=== PATIENT | male | born 2000 | race Asian ===

== ENCOUNTER 2025-02-11 06:21 | Outpatient (REF) | payer OTHER, SELFPAY ==
--- NOTE | ~2025-02-11 | US_ITS ---
EXAMINATION: US ABDOMEN COMPLETE CLINICAL INFORMATION: . COMPARISON: None available. TECHNIQUE: Real-time ultrasound of the abdomen using grayscale technique. FINDINGS: PANCREAS: No peripancreatic fluid collections. ABDOMINAL AORTA: The proximal, mid, and distal segments are normal in caliber. INFERIOR VENA CAVA: Visualized portions are normal. LIVER: Liver measures 15 cm. The liver contour is normal. Coarse echotexture. No solid or cystic lesion detected. No intrahepatic biliary ductal dilatation. Main portal vein is patent with normal hepatopedal flow direction. GALLBLADDER: Gallbladder is fluid-filled without pericholecystic fluid collection or gallbladder wall thickening. COMMON BILE DUCT: 2 mm. RIGHT KIDNEY: 11 cm. Normal echotexture. Normal renal cortical thickness. No hydronephrosis. No solid or cystic lesion detected. . LEFT KIDNEY: 11 cm. Normal echotexture. Normal renal cortical thickness. No solid or cystic lesion detected. No hydronephrosis. SPLEEN: 10 cm. No focal lesion.. FREE FLUID: None. US/US abdomen complete IMPRESSION: No cholelithiasis or choledocholithiasis. No hydronephrosis. No ascites. Questionable hepatic steatosis. Electronically signed by: David Bishop MD 02/11/2025 08:57 AM EDT
== END 2025-02-11 06:22 | disposition home or self-care (01) ==
LOC: HO.UMASIMG 06:21
PROVIDERS: Visit Provider Family Medicine
DX: R10.13 Epigastric pain (principal)
CPT/HCPCS: 76700

== ENCOUNTER → 2025-02-11 08:34 | Outpatient (BNV) | payer OTHER, SELFPAY | PROVIDERS: Visit Provider Radiology Diagnostic Radiology | DX: R10.9 Unspecified abdominal pain (principal) | CPT/HCPCS: 76700 ==